=== PATIENT | female | born 1970 | race Caucasian/White ===

== ENCOUNTER 2017-12-10 19:40 | Emergency (ER) | payer OTHER, SELFPAY ==
[2017-12-10 19:41] VITALS: BP 105/67; PULSE 53; RESP 14; O2SAT 99
[2017-12-10 19:46] VITALS: BP 116/73; PULSE 63; RESP 16; TEMP 36.4; O2SAT 100; BMI 29.2
[2017-12-10 20:14] LABS: Basophils # 0.1 K/mm3 (0-0.2); Basophils % 0.5 % (0.1-2.0); Eosinophils # 0.2 K/mm3 (0.0-0.4); Eosinophils % 1.5 % (0.1-12.0); Hematocrit 43.1 % (37.0-47.0); Hemoglobin 14.5 g/dL (12.2-16.2); Lymphocytes % 31.3 K/mm3 (10-50); Mean Corpuscular HGB Conc 33.8 g/dL (31.8-35.4); Mean Corpuscular Hemoglobin 31.8 pg (27.0-31.2); Mean Corpuscular Volume 94.3 fl (81-99); Mean Platelet Volume 6.9 fl (7.4-10.4); Monocytes # 0.6 K/mm3 (0.1-1.0); Monocytes % 4.9 % (1.7-9.3); Neutrophils # 7.8 K/mm3 (1.8-7.8); Neutrophils % 61.7 % (37.0-80.0); Platelet Count 384 K/mm3 (142-424); Red Blood Count 4.57 M/mm3 (4.20-5.40); Red Cell Distribution Width 12.7 % (11.5-17.5); White Blood Count 12.7 K/mm3 (4.8-10.8)
--- NOTE | 2017-12-10 20:20 | [facility].EDDIZZ ---
ED Disposition Clinical Impression: Vertigo Disposition: Home, Self-Care Condition on Discharge: Good Instructions: DI for Vertigo Additional Instructions: fluids and see pcp for follow up Prescriptions: Meclizine HCl [Antivert 25mg tablet] 25 mg PO TID #15 tab - Critical Care Critical Care Time: No Attestation: On 12/10/17, the high probability of a clinically significant, sudden or life threatening deterioration of the following system(s) required my full and direct attention, intervention and personal management. The time I documented below is in addition to time spent performing reported procedures but includes the following listed in this critical care notation. Medical Decision Making - Medical Records Medical records reviewed: Yes: I reviewed the patient's medical records. - Alexandro Inquiry Pt receiving controlled substance: No Vital Signs: 12/10/17 19:41 12/10/17 19:46 12/10/17 21:36 Temperature 97.6 F 97.8 F Temperature Source Oral Oral Pulse Rate [Right Radial] 53 L 63 58 L Respiratory Rate 14 16 16 Blood Pressure [Right Arm] 105/67 116/73 103/68 Blood Pressure Mean [Right Arm] 79 87 79 Blood Pressure Source [Right Arm] Automatic Cuff Automatic Cuff Blood Pressure Position [Right Arm] Supine Sitting 02 Sat by Pulse Oximetry 99 100 100 Oxygen Delivery Method Room Air Room Air - Lab Data Lab results reviewed: Yes: I reviewed the patient's lab results. Lab Results 12/10/17 20:05: WBC 12.7 H, RBC 4.57, Hgb 14.5, Hct 43.1, MCV 94.3, MCH 31.8 H, MCHC 33.8, RDW 12.7, Plt Count 384, MPV 6.9 L, Neut % (Auto) 61.7, Lymph % (Auto) 31.3, [place] % (Auto) 4.9, Eos % (Auto) 1.5, Baso % (Auto) 0.5, Neut # (Auto) 7.8, Lymph # (Auto) 4.0, [place] # (Auto) 0.6, Eos # (Auto) 0.2, Baso # (Auto) 0.1 12/10/17 20:05: Sodium 141, Potassium 3.6, Chloride 106, Carbon Dioxide 23, Anion Gap 15.6 H, BUN 12, Creatinine 0.73, Estimated Creat Clear 118, Estimated GFR 86, Est GFR ( Amer) 104, Glucose 101, Calcium 9.3, Total Bilirubin 0.3, AST 18, ALT 26, Alkaline Phosphatase 132 H, Total Protein 7.3, Albumin 3.6, Globulin 3.7 H, Albumin/Globulin Ratio 1.0 L 12/10/17 20:05: Influenza Type A Ag Negative, Influenza Type B Ag Negative 12/10/17 20:05: Troponin I < 0.02 12/10/17 20:35: Urine Color Yellow, Urine Appearance Cloudy, Urine pH 8.0, Ur Specific [place] 1.020, Urine Protein Negative, Urine Glucose (UA) Negative, Urine Ketones Negative, Urine Blood Negative, Urine Nitrate Negative, Urine Bilirubin Negative, Urine Urobilinogen 0.2, Ur Leukocyte Esterase Negative, Amorphous Sediment Trace Result diagrams: 12/10/17 20:05 12/10/17 20:05 Orders (Tests/Meds): ED MEDICATIONS Discontinued Medications Generic Name Dose Route Start Last Admin Trade Name Freq PRN Reason Stop Dose Admin Sodium Chloride 1,000 mls @ 999 mls/hr 12/10/17 20:00 12/10/17 20:20 Sod Chlor 0.9% 1000ml Bag IV 12/10/17 21:00 999 mls/hr .Q1H1M MCKAYLA Administration Ondansetron HCl 4 mg 12/10/17 19:55 12/10/17 20:20 Zofran 4mg/2ml Vial IV 12/10/17 19:56 4 mg ONCE ONE Administration Dizzy HPI - General Chief Complaint: Nausea/Vomiting/Diarrhea Stated Complaint: L arm numbness, dizzy, vomitting Time Seen by Provider: 12/10/17 20:20 Mode of Arrival: Ambulatory Source of Information: Patient, Significant Other, Medical Record Limitations: No Limitations Description of Symptoms (Recalled from ER Triage Doc. by RN): Pt reports she woke up this morning and felt light headed and it has continued throughout the day. She continues to be light heaed and is now experiencing nausea and vomiting. - History of Present Illness HPI Narrative: awoke with being lightheaded but no focal neuro sx and no fever or illness and no trauma - inc sx with mov MD complaint: dizziness Onset (ago): day(s) Timing: awoke with symptoms Description: lightheadedness History of similar episodes: No History of trauma: No Severity: moderate
--- NOTE | 2017-12-10 20:23 | ED_ITS ---
ED Disposition Clinical Impression: Vertigo Disposition: Home, Self-Care Condition on Discharge: Good Instructions: DI for Vertigo Additional Instructions: fluids and see pcp for follow up Prescriptions: Meclizine HCl [Antivert 25mg tablet] 25 mg PO TID #15 tab - Critical Care Critical Care Time: No Attestation: On 12/10/17, the high probability of a clinically significant, sudden or life threatening deterioration of the following system(s) required my full and direct attention, intervention and personal management. The time I documented below is in addition to time spent performing reported procedures but includes the following listed in this critical care notation. Medical Decision Making - Medical Records Medical records reviewed: Yes: I reviewed the patient's medical records. - Alexandro Inquiry Pt receiving controlled substance: No Vital Signs: 12/10/17 19:41 12/10/17 19:46 12/10/17 21:36 Temperature 97.6 F 97.8 F Temperature Source Oral Oral Pulse Rate [Right Radial] 53 L 63 58 L Respiratory Rate 14 16 16 Blood Pressure [Right Arm] 105/67 116/73 103/68 Blood Pressure Mean [Right Arm] 79 87 79 Blood Pressure Source [Right Arm] Automatic Cuff Automatic Cuff Blood Pressure Position [Right Arm] Supine Sitting 02 Sat by Pulse Oximetry 99 100 100 Oxygen Delivery Method Room Air Room Air - Lab Data Lab results reviewed: Yes: I reviewed the patient's lab results. Lab Results 12/10/17 20:05: WBC 12.7 H, RBC 4.57, Hgb 14.5, Hct 43.1, MCV 94.3, MCH 31.8 H, MCHC 33.8, RDW 12.7, Plt Count 384, MPV 6.9 L, Neut % (Auto) 61.7, Lymph % (Auto ) 31.3, [place] % (Auto) 4.9, Eos % (Auto) 1.5, Baso % (Auto) 0.5, Neut # (Auto) 7.8, Lymph # (Auto) 4.0, [place] # (Auto) 0.6, Eos # (Auto) 0.2, Baso # (Auto) 0.1 12/10/17 20:05: Sodium 141, Potassium 3.6, Chloride 106, Carbon Dioxide 23, Anion Gap 15.6 H, BUN 12, Creatinine 0.73, Estimated Creat Clear 118, Estimated GFR 86, Est GFR ( Amer) 104, Glucose 101, Calcium 9.3, Total Bilirubin 0.3, AST 18, ALT 26, Alkaline Phosphatase 132 H, Total Protein 7.3, Albumin 3.6 , Globulin 3.7 H, Albumin/Globulin Ratio 1.0 L 12/10/17 20:05: Influenza Type A Ag Negative, Influenza Type B Ag Negative 12/10/17 20:05: Troponin I < 0.02 12/10/17 20:35: Urine Color Yellow, Urine Appearance Cloudy, Urine pH 8.0, Ur Specific [place] 1.020, Urine Protein Negative, Urine Glucose (UA) Negative, Urine Ketones Negative, Urine Blood Negative, Urine Nitrate Negative, Urine Bilirubin Negative, Urine Urobilinogen 0.2, Ur Leukocyte Esterase Negative, Amorphous Sediment Trace Result diagrams: 12/10/17 20:05 12/10/17 20:05 Orders (Tests/Meds): ED MEDICATIONS Discontinued Medications Generic Name Dose Route Start Last Admin Trade Name Freq PRN Reason Stop Dose Admin Sodium Chloride 1,000 mls @ 999 mls/hr 12/10/17 20:00 12/10/17 20:20 Sod Chlor 0.9% 1000ml Bag IV 12/10/17 21:00 999 mls/hr .Q1H1M MCKAYLA Administration Ondansetron HCl 4 mg 12/10/17 19:55 12/10/17 20:20 Zofran 4mg/2ml Vial IV 12/10/17 19:56 4 mg ONCE ONE Administration Dizzy HPI - General Chief Complaint: Nausea/Vomiting/Diarrhea Stated Complaint: L arm numbness, dizzy, vomitting Time Seen by Provider: 12/10/17 20:20 Mode of Arrival: Ambulatory Source of Information: Patient, Significant Other, Medical Record Limitations: No Limitations De
[2017-12-10 20:32] LABS: Alanine Aminotransferase 26 U/L (12-78); Albumin Level 3.6 gm/dL (3.4-5.0); Alkaline Phosphatase 132 U/L (46-116); Anion Gap 15.6 mEq/L (5-15); Aspartate Amino Transferase 18 U/L (15-37); Bilirubin,Total 0.3 mg/dL (0.2-1.0); Blood Urea Nitrogen 12 mg/dL (7-18); Calcium 9.3 mg/dL (8.5-10.1); Carbon Dioxide 23 mmol/L (21.0-32.0); Chloride 106 mmol/L (98-107); Creatinine Clearance Estimated 118 mL/min (0-300); Creatinine,Serum 0.73 mg/dL (0.55-1.02); Estimated Glomerular Filt Rate 86 ml/min (>60); GFR (African American) 104 ML/MIN (>60); Globulin 3.7 gm/dl (1.3-3.2); Glucose 101 mg/dL (74-106); Potassium 3.6 mmoL/L (3.5-5.1); Sodium 141 mmol/L (136-145); Total Protein,Serum 7.3 gm/dL (6.4-8.2)
[2017-12-10 20:37] LABS: Microscopic, Urine URINE MICROSCOPIC (MICROSCOPIC)
[2017-12-10 20:38] LABS: Appearance,Urine CLOUDY (Clear); Bilirubin,Urine Negative (Negative); Blood, Urine Negative (Negative); Color,Urine YELLOW (Yellow); Glucose,Urine (UA) Negative (Negative); Ketones,Urine Negative (Negative); Leukocyte Esterase,Urine Negative (Negative); Nitrate,Urine Negative (Negative); Protein,Urine Negative (Negative); Urobilinogen,Urine 0.2 EU/dl (0.2)
[2017-12-10 20:40] LABS: Troponin I < 0.02 ng/ml (0.00-0.06)
[2017-12-10 20:57] LABS: Amorphous Sediment,Urine Trace /lpf
[2017-12-10 21:36] VITALS: BP 103/68; PULSE 58; RESP 16; TEMP 36.6; O2SAT 100
[2017-12-10 22:01] VITALS: BP 138/72; PULSE 70; RESP 16; TEMP 36.6; O2SAT 100
== END 2017-12-10 22:01 | disposition home or self-care (01) ==
PROVIDERS: Emergency Medicine; Emergency Provider Emergency Medicine
DX: R42 Dizziness and giddiness (principal); F17.210 Nicotine dependence, cigarettes, uncomplicated
CPT/HCPCS: 80053; 81001; 84484; 85025; 87275; 87276; 96365; 96375; 99283; J2405